=== PATIENT | male | born 1955 | race Hispanic/Latino ===

== ENCOUNTER 2021-01-12 16:54 | Emergency (ER) | payer OTHER ==
[2021-01-12 17:42] LABS: Absolute Lymphocytes (CBC) 1.5 K/uL (0.7-4.9); Basophils % 0.7 % (0-1.3); Hematocrit 44.4 % (39.6-49.0); Lymphocytes % 20.5 % (15.3-44.8); MPV 8.7 fL (7.6-11.3); RBC Red Blood Cell Count 5.14 M/uL (4.33-5.43)
--- NOTE | 2021-01-12 17:43 | RAD REPORT ---
EXAM DESCRIPTION: CT - Head Brain Wo Cont - 01/12/2021 5:36 pm CLINICAL HISTORY: Dizziness COMPARISON: None. TECHNIQUE: Computed axial tomography of the head was obtained. IV contrast was not requested. All CT scans are performed using dose optimization technique as appropriate and may include automated exposure control or mA/KV adjustment according to patient size. FINDINGS: An intracranial bleed is not seen . The ventricles are normal in caliber. No extra-axial fluid collection is noted. Fluid within the sinuses/ mastoids is not seen. IMPRESSION: No acute intracranial abnormality is seen. If patient's symptoms persist MRI of the bra in would be recommended.
[2021-01-12 17:53] LABS: ALT/SGPT 24 U/L (12-78); AST/SGOT 10 U/L (15-37); Albumin 3.7 g/dL (3.4-5.0); Alkaline Phosphatase 79 U/L (45-117); Bilirubin Direct 0.2 mg/dL (0-0.2); Bilirubin Total 0.7 mg/dL (0.2-1.0); Magnesium 1.8 mg/dL (1.8-2.4); NT PRO-BNP 38 pg/mL (<125); Protein, Total 6.8 g/dL (6.4-8.2); Troponin (Emerg Dept Use Only) < 0.02 ng/mL (0.0-0.045)
[2021-01-12 18:04] LABS: Potassium 4.5 mmol/L (3.5-5.1)
[2021-01-12] MEDS ORDERED: NA CHLORIDE 0.9% 1,000 ML ONE (18:30)
--- NOTE | 2021-01-12 18:57 | RAD REPORT ---
EXAM DESCRIPTION: Francy Angio01/12/2021 6:39 pm CLINICAL HISTORY: Dizziness COMPARISON: None TECHNIQUE: 50 cc Isovue 370 was administered intravenously. 3D MIP reconstruction performed All CT scans are performed using dose optimization technique as appropriate and may include automated exposure control or mA/KV adjustment according to patient size. FINDINGS: Mild plaque is present within the common carotid, internal carotid and external carotid ar teries bilaterally. The right vertebral artery is little bit more dominant than the left. No dissection noted. No aneurysm seen IMPRESSION: Mild plaque in the carotid arteries. No significant abnormalities displayed NASCET criteria used. Mild 0-49% stenosis Moderate 50-69% stenosis Severe 70-99% stenosis
--- NOTE | 2021-01-12 19:01 | RAD REPORT ---
EXAM DESCRIPTION: CTHead angio01/12/2021 6:39 pm CLINICAL HISTORY: Dizziness COMPARISON: None TECHNIQUE: CT angiogram of the head was obtained. 3D MIPS reconstruction performed. All CT scans are performed using dose optimization technique as appropriate and may include automated exposure control or mA/KV adjustment according to patient size. FINDINGS: The basilar, internal carotid, anterior cerebral, middle cerebral and posterior cerebral a rteries are normal caliber. An aneurysm is not seen. A significant stenosis is not noted. IMPRESSION: Unremarkable CT angiogram head.
[2021-01-12 19:59] LABS: Urine Blood Negative (Negative); Urine Glucose 2+ (Negative); Urine Protein Trace (Negative); Urine pH 5.5 (5.0-7.0)
[2021-01-12] MEDS ORDERED: INSULIN -REGULAR HUMAN 50 UNIT/0.5 ML ML ONE (20:26)
--- NOTE | 2021-01-12 20:57 | EDPHYS ---
Physician Documentation [facility] Name: Horace Tamez Age: 65 yrs Sex: Male : 1955 Arrival Date: 01/12/2021 Time: 16:55 Bed 18 Private MD: ED Physician Cj Gibbs HPI: 01/13 00:19 This 65 yrs old Male presents to ER via EMS with complaints of dizziness. kb 00:19 The patient presents with dizziness. Onset: The symptoms/episode began/occurred kb yesterday. Context: occurred outdoors, occurred while the patient was working, just prior to the episode the patient experienced no apparent symptoms. Modifying factors: The symptoms are alleviated by nothing, the symptoms are aggravated by changing position. Associated signs and symptoms: Pertinent positives: nausea, vomiting. Severity of symptoms: At their worst the symptoms were moderate in the emergency department the symptoms are unchanged. Patient's baseline: Neuro: alert and fully oriented, Motor: no deficits, Ambulation: walks without assistance, Speech: stutter. The patient has not experienced similar symptoms in the past. The patient has not recently seen a physician. Pt reports he was working under his car yesterday and got dizzy. took a break for a few minutes, but got dizzy again when he went back to work. Rested indoors for an hour and started feeling better so he continued to work, but symptoms returned as well as nausea and vomiting. States he noticed that his normal stutter was worse as well. Today symptoms are a little better but when he changes positions he gets dizzy and feels like he is going to pass out so he came to get checked out.. Historical: - Allergies: 01/12 17:02 wool; jd3 - Home Meds: 17:02 Aspirin Oral [Active]; atorvastatin oral oral [Active]; empagliflozin oral oral jd3 [Active]; Glipizide Oral [Active]; Metformin Oral [Active]; - PMHx: 17:02 Hypertension; Diabetes - NIDDM; jd3 - PSHx: 17:02 Hernia repair; jd3 - Immunization history:: Adult Immunizations up to date. - Social history:: Smoking status: Patient denies any tobacco usage or history of. Patient uses street drugs, marijuana a long time ago. ROS: 01/13 00:18 Constitutional: Negative for fever, chills, and weight loss. kb Abdomen/GI: Positive for nausea and vomiting, Negative for abdominal pain. Neuro: Positive for dizziness. All other systems are negative. Exam: 00:19 Constitutional: This is a well developed, well nourished patient who is awake, alert, kb and in no acute distress. Head/Face: Normocephalic, atraumatic. Eyes: Pupils equal round and reactive to light, extra-ocular motions intact. Lids and lashes normal. Conjunctiva and sclera are non-icteric and not injected. Cornea within normal limits. Periorbital areas with no swelling, redness, or edema. ENT: Moist Mucous membranes Chest/axilla: Normal chest wall appearance and motion. Cardiovascular: Regular rate and rhythm with a normal S1 and S2. No gallops, murmurs, or rubs. No pulse deficits. Respiratory: Respirations even and unlabored. No increased work of breathing, no retractions or nasal flaring. Abdomen/GI: Soft, non-tender. No distention Skin: Warm, dry with normal turgor. Normal color. MS/ Extremity: Pulses equal, no cyanosis. Neurovascular intact. Full, normal range of motion. Neuro: Awake and alert, GCS 15, oriented to person, place, time, and situation. Moves all extremities. Normal gait. Psych: Awake, alert, with orientation to person, place and time. Behavior, mood, and affect are within normal limits. Vital Signs: 01/12 17:02 BP 123 / 73; Pulse 86; Resp 18 S; Temp 99.1(O); Pulse Ox 99% on R/A; Weight 73.03 kg jd3 (R); Height 6 ft. 4 in. (193.04 cm) (R); Pain 1/10; 17:34 BP 117 / 70 Supine; Pulse 78; jd3 17:34 BP 120 / 79 Sitting; Pulse 91; jd3 17:34 BP 115 / 73 Standing; Pulse 98; jd3 18:49 BP 127 / 72; Pulse 75; Resp 17 S; Pulse Ox 98% on R/A; jd3 20:58 BP 122 / 74; Pulse 72; Resp 16; Pulse Ox 99% on R/A; jm8 17:02 Body Mass Index 19.60 (73.03 kg, 193.04 cm) jd3 MDM: 16:58 Patient medically screened. kb 01/13 00:17 Data reviewed: vital signs, nurses notes. Data interpreted: Pulse oximetry: on room air kb is 99 %. Interpretation: normal. Counseling: I had a detailed discussion with the patient and/or guardian regarding: the historical points, exam findings, and any diagnostic results supporting the discharge/admit diagnosis, lab results, radiology results, the need for outpatient follow up, to return to the emergency department if symptoms worsen or persist or if there are any questions or concerns that arise at home. ED course: Discussed case with ERP, who recommended CT angio head and neck. If negative pt can follow up outpatient with pcp. . ED course: Pt reported feeling better after treatment. States dizziness subsided and he was ready to go home. . 01/12 16:59 Order name: CBC with Diff; Complete Time: 17:44 kb 01/12 16:59 Order name: Basic Metabolic Panel; Complete Time: 18:09 kb 01/12 16:59 Order name: CPK; Complete Time: 18:09 kb 01/12 17:05 Order name: LFT's kb 01/12 17:05 Order name: Magnesium; Complete Time: 17:56 kb 08 17:05 Order name: NT PRO-BNP; Complete Time: 17:56 kb 08 17:05 Order name: PT-INR; Complete Time: 17:43 kb 08 17:05 Order name: Troponin (emerg Dept Use Only); Complete Time: 17:56 kb 08 17:05 Order name: CT Head Brain wo Cont; Complete Time: 17:49 kb 08 17:05 Order name: Liver (Hepatic) Function; Complete Time: 17:56 EDMS 01/12 18:09 Order name: CT Head Angio; Complete Time: 19:03 kb 08 19:59 Order name: Urine Dipstick-Ancillary; Complete Time: 20:00 EDMS 01/12 20:15 Order name: Glucose, Ancillary Testing; Complete Time: 20:16 EDMS 01/12 21:05 Order name: Glucose, Ancillary Testing EDMS 01/12 16:59 Order name: Orthostatics; Complete Time: 17:33 kb 01/12 16:59 Order name: Urine Dipstick-Ancillary (obtain specimen); Complete Time: 20:00 kb 01/12 16:59 Order name: IV Start; Complete Time: 17:06 kb 08 17:05 Order name: EKG; Complete Time: 17:06 kb 01/12 17:05 Order name: Cardiac monitoring; Complete Time: 17:06 kb 01/12 17:05 Order name: EKG - Nurse/Tech; Complete Time: 18:00 kb 01/12 17:05 Order name: Labs collected and sent; Complete Time: 17:33 kb 01/12 17:05 Order name: O2 Per Protocol; Complete Time: 17:06 kb 01/12 17:05 Order name: O2 Sat Monitoring; Complete Time: 17:06 kb 01/12 18:09 Order name: CT Neck Angio; Complete Time: 18:59 kb 01/12 19:32 Order name: Blood Glucose Level; Complete Time: 20:07 kb 01/12 20:48 Order name: Blood Glucose Level; Complete Time: 20:54 kb Administered Medications: 01/12 17:00 Drug: NS 0.9% 1000 ml {Note: given by EMS.} Route: IV; Rate: 1000 ml; Site: right [facility] antecubital; 21:10 Follow up: IV Status: Completed infusion [facility] 18:10 Drug: NS 0.9% 1000 ml Route: IV; Rate: 1000 ml; Site: right antecubital; [facility] 21:10 Follow up: IV Status: Completed infusion [facility] 20:07 Drug: Insulin Regular Human 5 units {Co-Signature: ss (Kasey Black RN).} Route: IVP; [facility] Site: right antecubital; 20:59 Follow up: Response: Blood sugar is lowered jm8 Disposition: 01/13 07:01 Co-signature as Attending Physician, Cj Gibbs MD. rn Disposition: 01/12/21 20:57 Discharged to Home. Impression: Hyperglycemia, unspecified, Dehydration. - Condition is Stable. - Discharge Instructions: Dehydration, Adult, Hyperglycemia, [id number]. - Medication Reconciliation Form, Thank You Letter, Antibiotic Education, Prescription Opioid Use form. - Follow up: Emergency Department; When: As needed; Reason: Worsening of condition. Follow up: Private Physician; When: 2 - 3 days; Reason: Recheck today's complaints, Continuance of care, Re-evaluation by your physician. Signatures: Dispatcher [employer] Katina Marquez, REHABILITATION SERVICES AIDE-C REHABILITATION SERVICES AIDE-Ckb Cj Gibbs MD MD rn Davies, Jonathon RN RN jd3 Ritchie Mansfield, BRUNO RN jm8 Kasey Black RN ss Corrections: (The following items were deleted from the chart) 01/12 21:11 20:57 01/12/2021 20:57 Discharged to Home. Impression: Hyperglycemia, unspecified; jm8 Dehydration. Condition is Stable. Forms are Medication Reconciliation Form, Thank You Letter, Antibiotic Education, Prescription Opioid Use. Follow up: Emergency Department; When: As needed; Reason: Worsening of condition. Follow up: Private Physician; When: 2 - 3 days; Reason: Recheck today's complaints, Continuance of care, Re-evaluation by your physician. kb
--- NOTE | 2021-01-12 20:57 | ER ---
Nurse's Notes [facility] Name: Horace Tamez Age: 65 yrs Sex: Male : 1955 Arrival Date: 01/12/2021 Time: 16:55 Bed 18 Private MD: Diagnosis: Hyperglycemia, unspecified;Dehydration Presentation: 01/12 16:55 Chief complaint: EMS states: "the pt was working on his car yesterday and he got very jd3 dizzy with nausea, vomiting and diarrhea. he reported some stomach pain as well, but not as bad as yesterday. he reports that whenever he stands he gets really dizzy and can't to long without feeling like falling over.". Coronavirus screen: At this time, the client does not indicate any symptoms associated with coronavirus-19. Ebola Screen: Patient negative for fever greater than or equal to 101.5 degrees Fahrenheit, and additional compatible Ebola Virus Disease symptoms. Initial Sepsis Screen: Does the patient meet any 2 criteria? No. Patient's initial sepsis screen is negative. Does the patient have a suspected source of infection? No. Patient's initial sepsis screen is negative. Risk Assessment: Do you want to hurt yourself or someone else? Patient reports no desire to harm self or others. Onset of symptoms was January 11, 2021. 16:55 Method Of Arrival: EMS: [facility] jd3 16:55 Acuity: LAVONNE 3 jd3 Historical: - Allergies: 17:02 wool; jd3 - Home Meds: 17:02 Aspirin Oral [Active]; atorvastatin oral oral [Active]; empagliflozin oral oral jd3 [Active]; Glipizide Oral [Active]; Metformin Oral [Active]; - PMHx: 17:02 Hypertension; Diabetes - NIDDM; jd3 - PSHx: 17:02 Hernia repair; jd3 - Immunization history:: Adult Immunizations up to date. - Social history:: Smoking status: Patient denies any tobacco usage or history of. Patient uses street drugs, marijuana a long time ago. Screenin:04 Abuse screen: Denies threats or abuse. Nutritional screening: No deficits noted. jd3 Tuberculosis screening: No symptoms or risk factors identified. Fall Risk Ambulatory Aid- None/Bed Rest/Nurse Assist (0 pts). Gait- Normal/Bed Rest/Wheelchair (0 pts) Mental Status- Oriented to own ability (0 pts). Total Sosa Fall Scale indicates No Risk (0-24 pts). Assessment: 17:03 General: Appears in no apparent distress. comfortable, Behavior is calm, cooperative, jd3 appropriate for age. Pain: Complains of pain in abdomen Quality of pain is described as aching. Neuro: Level of Consciousness is awake, alert, obeys commands, Oriented to person, place, time, situation, Reports dizziness, since yesterday. Cardiovascular: Denies chest pain, Capillary refill < 3 seconds Patient's skin is warm and dry. Respiratory: Airway is patent Respiratory effort is even, unlabored, Respiratory pattern is regular, symmetrical, Denies cough, shortness of breath. GI: Abdomen is round non-distended, Abd is soft and non tender X 4 quads. Reports diarrhea, nausea, vomiting. : No signs and/or symptoms were reported regarding the genitourinary system. EENT: No signs and/or symptoms were reported regarding the EENT system. Derm: Skin is intact, Skin is dry, Skin is normal, Skin temperature is warm. Musculoskeletal: Circulation, motion, and sensation intact. Range of motion: intact in all extremities. 17:34 Reassessment: Patient appears in no apparent distress at this time. No changes from jd3 previously documented assessment. Patient and/or family updated on plan of care and expected duration. Pain level reassessed. Patient is alert, oriented x 3, equal unlabored respirations, skin warm/dry/pink. 18:50 Reassessment: Patient appears in no apparent distress at this time. No changes from jd3 previously documented assessment. Patient and/or family updated on plan of care and expected duration. Pain level reassessed. Patient is alert, oriented x 3, equal unlabored respirations, skin warm/dry/pink. Vital Signs: 17:02 BP 123 / 73; Pulse 86; Resp 18 S; Temp 99.1(O); Pulse Ox 99% on R/A; Weight 73.03 kg jd3 (R); Height 6 ft. 4 in. (193.04 cm) (R); Pain 1/10; 17:34 BP 117 / 70 Supine; Pulse 78; jd3 17:34 BP 120 / 79 Sitting; Pulse 91; jd3 17:34 BP 115 / 73 Standing; Pulse 98; jd3 18:49 BP 127 / 72; Pulse 75; Resp 17 S; Pulse Ox 98% on R/A; jd3 20:58 BP 122 / 74; Pulse 72; Resp 16; Pulse Ox 99% on R/A; jm8 17:02 Body Mass Index 19.60 (73.03 kg, 193.04 cm) [facility] ED Course: 16:55 Patient arrived in ED. jd3 16:55 Zachary Paez, BRUNO is Primary Nurse. jd3 16:58 Triage completed. jd3 16:58 [facility] Rivera [facility]C [facility] kb 16:58 Cj Gibbs MD is Attending Physician. kb 17:03 Arm band placed on. jd3 17:04 Patient has correct armband on for positive identification. Bed in low position. Call [facility] light in reach. Side rails up X2. potline monitor on. Pulse ox on. NIBP on. 17:33 Maintain EMS IV. Dressing intact. Good blood return noted. Site clean \\T\\ dry. Gauge \\T\\ maritza 3 site: 18 G right AC. 17:35 CT Head Brain wo Cont In Process Unspecified. EDMS 18:08 Notified Nurse Practitioner and/or Physician Observation Nurse of a critical lab result(s), ll1 glucose 435. 18:38 CT Head Angio In Process Unspecified. EDMS 18:38 CT Neck Angio In Process Unspecified. EDMS 21:09 No provider procedures requiring assistance completed. IV discontinued, intact. 8 Administered Medications: 17:00 Drug: NS 0.9% 1000 ml {Note: given by EMS.} Route: IV; Rate: 1000 ml; Site: right [facility] antecubital; 21:10 Follow up: IV Status: Completed infusion 8 18:10 Drug: NS 0.9% 1000 ml Route: IV; Rate: 1000 ml; Site: right antecubital; [facility] 21:10 Follow up: IV Status: Completed infusion 8 20:07 Drug: Insulin Regular Human 5 units {Co-Signature: nona (Kasey Black RN).} Route: IVP; [facility] Site: right antecubital; 20:59 Follow up: Response: Blood sugar is lowered [facility] Outcome: 20:57 Discharge ordered by . kb 21:09 Discharged to home ambulatory. 8 21:09 Condition: good 21:09 Discharge instructions given to patient, Instructed on discharge instructions, follow up and referral plans. medication usage, Demonstrated understanding of instructions, follow-up care, medications. 21:11 Patient left the ED. jmLuis Enrique Signatures: Dispatcher [employer] EDMS Katina Rivera, PASTA MAKER-C PASTA MAKER-Zachary Morris RN RN jd3 Katelynn Carreno RN RN ll1 Ritchie Mansfield RN RN jm8 Kasey Black RN ss Corrections: (The following items were deleted from the chart) 18:33 18:13 NS 0.9% 1000 ml IV at 1000 ml in right antecubital jd3 jd3
[2021-01-12 21:18] VITALS: TEMP 99.1
[2021-01-12 21:22] VITALS: BP 122/74; O2SAT 99
--- NOTE | 2021-01-13 16:01 | EKG ---
Test Date: 2021-01-12 Test Time: 17:45:38 [employer] Plant Operator: LINK MEASUREMENT RESULTS: Intervals: Rate: 80 HI: 150 QRSD: 78 QT: 348 QTc: 401 Erin: P: 72 HI: 150 QRS: 61 T: 59 INTERPRETIVE STATEMENTS: Normal sinus rhythm Possible Left atrial enlargement Borderline ECG No previous ECG available for comparison Electronically Signed On 01-13-21 15:59:59 CDT by Neftaly Guo
== END 2021-01-12 21:11 | disposition home or self-care (01) ==
LOC: ER 16:54
DX: E11.65 Type 2 diabetes mellitus with hyperglycemia (principal); E86.0 Dehydration; I10 Essential (primary) hypertension; Z79.82 Long term (current) use of aspirin
CPT/HCPCS: 96361; 93005; 85025; 80048; 36415; 83735; 82550; 85610; 82947 ×2; 80076; 81003; 84484; 83880; 70450; 70496; 70498; 96374; 99284; Q9967; J7030